=== PATIENT | male | born 1940 | race Caucasian/White ===

== ENCOUNTER 2019-10-23 13:09 | Inpatient (IN) | payer OTHER ==
[~2019-10-23] VITALS: Ht 180.3 cm; Wt 114.6 kg
[2019-10-23 13:10] VITALS: BP_SYST 151
[2019-10-23] MEDS ORDERED: NACL 0.9% 1,000 ML IV ONE (13:24)
[2019-10-23] MEDS ORDERED: ONDANSETRON HCL 4 MG/2 ML VIAL IVP ONE (13:30)
[2019-10-23] MEDS ORDERED: MORPHINE 4 MG/ML INJ. SYRINGE IVP ONE ×2 (13:30→15:30)
[2019-10-23 13:51] LABS: BASOPHILS % (AUTO) 0.7 % (0.0-2.0); EOSINOPHILS # (AUTO) 0.1 K/uL (0.0-0.4); HEMATOCRIT 41.9 % (36-54); LYMPHOCYTES % (AUTO) 21.6 % (20.5-51.5); MEAN CORPUSCULAR HEMOGLOBIN 32 pg (27-31); MEAN CORPUSCULAR HGB CONC 33 % (32-36); MEAN CORPUSCULAR VOLUME 94 fL (79.0-98.0); MONOCYTES # (AUTO) 0.8 K/uL (0.0-1.0); MONOCYTES % (AUTO) 16.9 % (1.7-9.3); NEUTROPHILS # (AUTO) 2.7 K/uL (1.8-7.7); NEUTROPHILS % (AUTO) 57.8 % (40.0-70.0); PLATELET COUNT (AUTO) 151 K/uL (130-430); RED BLOOD CELL COUNT(AUTO) 4.44 MIL/uL (4.2-6.2); RED CELL DISTRIBUTION WIDTH 15.1 % (9.0-15.0); WHITE BLOOD COUNT (AUTO) 4.7 K/uL (4.8-10.8)
[2019-10-23 14:12] LABS: ANION GAP 9 (5-15); CALCIUM 8.8 mg/dL (8.4-11.0); CHLORIDE 101 mmol/L (98-107); CREATININE 1.14 mg/dL (0.55-1.30); GLUCOSE 94 mg/dL (70-99); SODIUM SERUM 138 mmol/L (136-145); UREA NITROGEN, BLOOD 22 mg/dL (8-21)
[2019-10-23 14:17] LABS: ALANINE AMINOTRANSFERASE 51 U/L (12-78); ALBUMIN 3.5 g/dL (3.4-4.8); ASPARTATE AMINOTRANSFERASE 45 U/L (10-37); TOTAL BILIRUBIN 0.6 mg/dL (0.0-1.0)
[2019-10-23 15:17] LABS: BILIRUBIN,URINE NEGATIVE (NEGATIVE); CLARITY/URINE CLEAR (CLEAR); COLOR,URINE YELLOW (YELLOW); GLUCOSE,URINE NEGATIVE (NEGATIVE); KETONES,URINE NEGATIVE (NEGATIVE); LEUKOCYTE ESTERASE ,URINE NEGATIVE (NEGATIVE); NITRITE, URINE NEGATIVE (NEGATIVE); PROTEIN URINE TRACE (NEGATIVE); UROBILINOGEN,URINE 0.2 (0.2-1.0)
[2019-10-23 15:18] LABS: BLOOD, URINE TRACE (NEGATIVE)
[2019-10-23 15:26] LABS: BACTERIA,URINE None Seen /HPF (None Seen); MUCUS,URINE None Seen /LPF (None Seen); RBC,URINE 0-3 /HPF (0-3); WBC,URINE NONE SEEN /HPF (0-3)
[2019-10-23] MEDS ORDERED: DEXAMETHASONE SOD PHOSPHATE 10 MG/ML VIAL IVP ONE ×2 (16:45→17:45)
[2019-10-23] MEDS ORDERED: ONDANSETRON HCL 4 MG/2 ML VIAL IVP PRN (16:45)
[2019-10-23] MEDS ORDERED: ACETAMINOPHEN 325 MG TABLET PO PRN (16:45)
[2019-10-23 16:59] LABS: PROTHROMBIN TIME 10.4 SECS (9.5-12.5)
[2019-10-23 17:22] LABS: PHOSPHORUS 2.9 mg/dL (2.7-4.5); THYROID STIMULATING HORMONE 6.8 uIu/mL (0.36-3.74)
[2019-10-23] MEDS ORDERED: DEXAMETHASONE SOD PHOSPHATE 4 MG/ML VIAL INH SCH (19:00)
[2019-10-23] MEDS: HEPARIN SODIUM,PORCINE 5000 UNITS/ML VIAL SUBCUT SCH (21:00)
[2019-10-23] MEDS: DOCUSATE SODIUM 100 MG CAPSULE PO SCH (21:00)
[2019-10-23 22:03] VITALS: BP_SYST 151
[2019-10-23] MEDS: MORPHINE 2 MG/ML INJ. SYRINGE IVP PRN (22:41)
[2019-10-23] MEDS: METHOCARBAMOL 500 MG TABLET PO SCH (22:53)
[2019-10-24] VITALS: BP_SYST 133
[2019-10-24] MEDS: MORPHINE 2 MG/ML INJ. SYRINGE IVP PRN ×3 (02:44→21:51)
[2019-10-24 06:33] LABS: BASOPHILS % (AUTO) 0.1 % (0.0-2.0); HEMOGLOBIN 14.2 g/dL (14.0-18.0); LYMPHOCYTES # (AUTO) 0.4 K/uL (1.0-5.5); LYMPHOCYTES % (AUTO) 11.3 % (20.5-51.5); MEAN CORPUSCULAR HEMOGLOBIN 32 pg (27-31); MEAN CORPUSCULAR HGB CONC 34 % (32-36); MEAN CORPUSCULAR VOLUME 95 fL (79.0-98.0); MONOCYTES # (AUTO) 0.2 K/uL (0.0-1.0); MONOCYTES % (AUTO) 5.1 % (1.7-9.3); NEUTROPHILS # (AUTO) 3.2 K/uL (1.8-7.7); NEUTROPHILS % (AUTO) 83.5 % (40.0-70.0); PLATELET COUNT (AUTO) 138 K/uL (130-430); RED BLOOD CELL COUNT(AUTO) 4.44 MIL/uL (4.2-6.2); RED CELL DISTRIBUTION WIDTH 14.9 % (9.0-15.0); WHITE BLOOD COUNT (AUTO) 3.8 K/uL (4.8-10.8)
[2019-10-24 07:00] VITALS: BP_SYST 122
[2019-10-24 07:17] LABS: ANION GAP 5 (5-15); CALCIUM 8.7 mg/dL (8.4-11.0); CHLORIDE 100 mmol/L (98-107); CHOLESTEROL 179 mg/dL (<200); CREATININE 1.16 mg/dL (0.55-1.30); GLUCOSE 161 mg/dL (70-99); HDL CHOLESTEROL 61 mg/dL (>45); LDL CHOLESTEROL 104 mg/dL (<100); POTASSIUM 4.2 mmol/L (3.5-5.1); SODIUM SERUM 133 mmol/L (136-145); TRIGLYCERIDES 38 mg/dL (30-150); UREA NITROGEN, BLOOD 20 mg/dL (8-21)
[2019-10-24] MEDS: DOCUSATE SODIUM 100 MG CAPSULE PO SCH ×2 (09:57→21:48)
[2019-10-24] MEDS: METHOCARBAMOL 500 MG TABLET PO SCH ×4 (09:57→21:48)
[2019-10-24] MEDS: HEPARIN SODIUM,PORCINE 5000 UNITS/ML VIAL SUBCUT SCH ×2 (09:59→21:54)
[2019-10-24] MEDS: HYDROcodone/ACETAMIN 5-325 MG TAB (NORCO/ VICODIN) PO PRN ×2 (10:04→14:18)
[2019-10-24 12:05] VITALS: BP_SYST 116
[2019-10-24 16:10] VITALS: BP_SYST 138
[2019-10-24 20:00] VITALS: BP_SYST 118
[2019-10-24] MEDS ORDERED: HYDROcodone/ACETAMIN 10-325 MG TAB PO PRN (22:15)
[2019-10-25] MEDS: DEXAMETHASONE SOD PHOSPHATE 4 MG/ML VIAL IVP SCH ×4 (00:13→17:36)
[2019-10-25 00:15] VITALS: BP_SYST 136
[2019-10-25] MEDS: HYDROmorphone 2 MG/ML VIAL IVP PRN ×4 (00:20→20:47)
[2019-10-25 08:00] VITALS: BP_SYST 144
[2019-10-25] MEDS: METHOCARBAMOL 500 MG TABLET PO SCH ×4 (08:41→20:46)
[2019-10-25] MEDS: DOCUSATE SODIUM 100 MG CAPSULE PO SCH ×2 (08:41→20:45)
[2019-10-25] MEDS: HEPARIN SODIUM,PORCINE 5000 UNITS/ML VIAL SUBCUT SCH ×2 (08:50→20:58)
[2019-10-25 10:00] VITALS: BP_SYST 144
[2019-10-25 12:06] VITALS: BP_SYST 144
[2019-10-25 16:05] VITALS: BP_SYST 129
[2019-10-25 20:30] VITALS: BP_SYST 125
[2019-10-26] MEDS: DEXAMETHASONE SOD PHOSPHATE 4 MG/ML VIAL IVP SCH ×4 (00:14→17:36)
[2019-10-26 00:35] VITALS: BP_SYST 121
[2019-10-26] MEDS: HYDROmorphone 2 MG/ML VIAL IVP PRN ×3 (08:05→17:37)
[2019-10-26] MEDS: METHOCARBAMOL 500 MG TABLET PO SCH ×4 (08:09→22:08)
[2019-10-26] MEDS: DOCUSATE SODIUM 100 MG CAPSULE PO SCH ×2 (08:09→22:08)
[2019-10-26] MEDS: HEPARIN SODIUM,PORCINE 5000 UNITS/ML VIAL SUBCUT SCH ×2 (08:11→22:10)
[2019-10-26 08:16] VITALS: BP_SYST 154
[2019-10-26 12:31] VITALS: BP_SYST 164
[2019-10-26 13:00] VITALS: BP_SYST 150
[2019-10-26 16:17] VITALS: BP_SYST 154
[2019-10-26 20:00] VITALS: BP_SYST 143
[2019-10-27] MEDS: DEXAMETHASONE SOD PHOSPHATE 4 MG/ML VIAL IVP SCH ×3 (00:05→12:30)
[2019-10-27 00:09] VITALS: BP_SYST 139
[2019-10-27 08:00] VITALS: BP_SYST 148
[2019-10-27] MEDS: METHOCARBAMOL 500 MG TABLET PO SCH ×2 (08:11→12:30)
[2019-10-27] MEDS: DOCUSATE SODIUM 100 MG CAPSULE PO SCH (08:11)
[2019-10-27] MEDS: HEPARIN SODIUM,PORCINE 5000 UNITS/ML VIAL SUBCUT SCH (08:12)
[2019-10-27] MEDS ORDERED: BISACODYL 5 MG TABLET.DR (DULCOLAX) PO ONE ×2 (09:45→15:30)
[2019-10-27 12:57] VITALS: BP_SYST 159
[2019-10-27 13:19] VITALS: BP_SYST 85
[2019-10-27] MEDS: HYDROmorphone 2 MG/ML VIAL IVP PRN (14:29)
[2019-10-27] MEDS ORDERED: SODIUM PHOSPHATE,MONO-DIBASIC 133 ML ENEMA RC ONE (15:30)
[2019-10-27 16:36] VITALS: BP_SYST 115
[2019-10-27] MEDS ORDERED: DOCUSATE SODIUM 250 MG CAPSULE PO SCH (21:00)
== END 2019-10-27 16:20 | DRG 552 ==
LOC: SED 13:09 → SMU 15:38 → INTOOBSV 15:38 → SMU 20:35 → OBSVTOIN 10-25 14:05
PROVIDERS: ADMIT General Practice; ATTEND General Practice
DX: M48.061 Spinal stenosis, lumbar region without neurogenic claudication (principal); M48.56XA Collapsed vertebra, not elsewhere classified, lumbar region, initial encounter for fracture; E87.1 Hypo-osmolality and hyponatremia; I10 Essential (primary) hypertension; E03.9 Hypothyroidism, unspecified; M54.31 Sciatica, right side; Z03.818 Encounter for observation for suspected exposure to other biological agents ruled out
CPT/HCPCS: 36415; 71045; 72131; 80048; 80053; 80061; 81000-TC; 82550-TC; 82962; 83036; 83605; 83735-TC; 83880; 84100-TC; 84443-TC; 84484; 85025; 85610-TC; 85730-TC; 87040-TC; 93005; 96374; 96375; 96376; 97116-GP; 97530-GP; 99285; G0378; J1100; J1170; J1644; J2270; J2405; J7030; U0003-CS